=== PATIENT | male | born 1980 | race Caucasian/White ===

== ENCOUNTER 2018-10-24 23:11 | Inpatient (IN) | payer OTHER ==
--- NOTE | 2018-10-24 23:27 | PDOC ---
History of Present Illness <AparicioVeda - Last Filed: 10/25/18 03:06> - General History Source: Patient - History of Present Illness Initial Comments: 10/24/18 23:28 The patient is a 38 year old male with a PMH of Crohn's Disease and Diverticulitis who presents to our ED c/o acute onset of abdominal pain. Pain started @ 0500 this morning and woke patient from sleep. Pain is cramping, diffuse, associated with 20+ episodes of NBNB emesis. Fever w/Tmax 102. Limitedly tolerating PO intake. Does not follow with GI for Crohn's. NKDA Surgical: B/L shoulder Social: Vape nicotine, social alcohol, denies recreational drugs PMD: in [place] As per EMR, patient evaluated in our ED in 2014 for abdominal pain. U/S negative for acute pathology and patient discharged home with supportive care. <Elizabeth Salgado - Last Filed: 10/25/18 03:35> - General Chief Complaint: Vomiting/Diarrhea Stated Complaint: FEVER/NAUSEA/VOMITING Time Seen by Provider: 10/24/18 23:26 Past History <AlessandraVeda - Last Filed: 10/25/18 03:06> - Past Medical History COPD: No GI Disorders: Yes (Chrones dx) - Suicide/Smoking/Psychosocial Hx Smoking History: Never smoked Have you smoked in the past 12 months: Yes Number of Cigarettes Smoked Daily: 2 Hx Alcohol Use: Yes Substance Use Type: Alcohol <DamianElizabeth - Last Filed: 10/25/18 03:35> - Past Medical History Allergies/Adverse Reactions: Allergies Allergy/AdvReac Type Severity Reaction Status Date / Time lactose Allergy Mild DIARRHEA Verified 12/10/14 12:02 No Known Drug Allergies Allergy Verified 12/10/14 12:02 Home Medications: Ambulatory Orders Finasteride [Propecia] 1 mg PO DAILY 12/10/14 Sertraline HCl [Zoloft -] 50 mg PO DAILY 12/10/14 Review of Systems - Review of Systems Constitutional: Yes: Fever. No: Chills HEENTM: No: Recent change in vision Respiratory: No: Cough, Shortness of Breath Cardiac (ROS): No: Chest Pain, Lightheadedness, Palpitations, Syncope ABD/GI: Yes: Blood Streaked Bowels, Diarrhea, Abdominal cramping : No: Burning, Dysuria <Elizabeth Salgado - Last Filed: 10/25/18 03:35> *Physical Exam - Vital Signs Last Vital Signs Temp Pulse Resp BP Pulse Ox 99.8 F H 124 H 20 126/74 97 10/24/18 23:15 10/24/18 23:15 10/24/18 23:15 10/24/18 23:15 10/24/18 23:15 <Veda Aparicio - Last Filed: 10/25/18 03:06> - Vital Signs Last Vital Signs Temp Pulse Resp BP Pulse Ox 99.8 F H 124 H 20 126/74 97 10/24/18 23:15 10/24/18 23:15 10/24/18 23:15 10/24/18 23:15 10/24/18 23:15 - Physical Exam General Appearance: Yes: Nourished, Appropriately Dressed HEENT: positive: Normal Voice, Hearing Grossly Normal Neck: positive: Trachea midline, Supple Respiratory/Chest: positive: Lungs Clear, Normal Breath Sounds Cardiovascular: positive: S1, S2. negative: Murmur Gastrointestinal/Abdominal: positive: Normal Bowel Sounds, Soft. negative: Distended Integumentary: positive: Normal Color, Dry, Warm Neurologic: positive: Fully Oriented, Alert <Elizabeth Salgado - Last Filed: 10/25/18 03:35> ED Treatment Course - LABORATORY CBC & Chemistry Diagram: 10/24/18 21:58 10/24/18 21:58 - ADDITIONAL ORDERS Additional order review: Laboratory Results 10/24/18 10/24/18 10/24/18 23:38 21:58 21:58 Sodium 136 Potassium 3.8 Chloride 101 Carbon Dioxide 27 Anion Gap 7 L BUN 13 Creatinine 1.4 H Creat Clearance w eGFR 57.03 Random Glucose 94 Lactic Acid 1.5 Calcium 9.1 Total Bilirubin 0.7 AST 19 ALT 31 Alkaline Phosphatase 105 Total Protein 8.2 Albumin 4.1 Lipase 215 Stool Occult Blood Negative 10/24/18 21:58 RBC 4.96 MCV 90.3 MCHC 33.0 RDW 13.2 MPV 8.8 Neutrophils % 90.0 H Lymphocytes % 6.1 L D Monocytes % 3.6 L Eosinophils % 0.1 D Basophils % 0.2 - Medications Given in the ED: ED Medications Discontinued Medications Generic Name Dose Route Start Last Admin Trade Name Vazquez PRN Reason Stop Dose Admin Acetaminophen 1,000 mg 10/24/18 23:38 10/25/18 00:38 Ofirmev Injection - IVPB 10/24/18 23:39 1,000 mg ONCE ONE Administration Ibuprofen 600 mg 10/25/18 00:57 10/25/18 01:43 Motrin - PO 10/25/18 00:58 600 mg ONCE ONE Administration Ondansetron HCl 4 mg 10/24/18 23:38 10/25/18 00:39 Zofran Injection IVPUSH 10/24/18 23:39 4 mg ONCE ONE Administration Sodium Chloride 1,000 ml 10/24/18 23:38 10/25/18 00:38 Normal Saline - IV 10/24/18 23:39 1,000 ml ONCE ONE Administration <Veda Aparicio - Last Filed: 10/25/18 03:06> - LABORATORY CBC & Chemistry Diagram: 10/24/18 21:58 10/24/18 21:58 <Elizabeth Salgado - Last Filed: 10/25/18 03:35> Medical Decision Making - Medical Decision Making 10/24/18 23:46 38 year old non-toxic appearing male with acute onset of abdominal cramping, fever, N/V. H/o untreated Crohn's Disease. Tachycardic (HR 124) other VS unremarkable. Consider IBD as well as peritonitis, colitis, diverticulitis, gastritis/gastroenteritis, pancreatitis (less likely), SBO (less likely, patient passing stools), abscess (less likely given clinical presentation). Also consider infectious etiology including Cystitis, Pyelonephritis and PNA. PLAN: 1. CT Abdomen w/IV contrast (PO pending patient tolerating PO intake) 2. Lipase, Lactic Acid, CBC, CMP 3. IV hydration, Tylenol, Zofran Reassess 10/25/18 00:47 Patient reassessed @ bedside Symptomatically improved - will trial PO contrast 10/25/18 00:48 Leukocytosis 15.1 10/25/18 00:51 Repeat HR 96 10/25/18 01:47 Awaiting technical sales consultant 10/25/18 03:00 CT read as colitis. Will start on enteric Abx coverage and admit. Hospitalist microblogged for admission 10/25/18 03:14 Patient reevaluated @ bedside Symptomatically improved Counseled on plan of care Amenable to admission <Elizabeth Salgado - Last Filed: 10/25/18 03:35> *DC/Admit/Observation/Transfer - Discharge Dispostion Decision to Admit order: Yes <Veda Aparicio - Last Filed: 10/25/18 03:06> <Elizabeth Salgado - Last Filed: 10/25/18 03:35> Diagnosis at time of Disposition: Colitis, Fever, Dehydration, Unable to eat - Discharge Dispostion Condition at time of disposition: Guarded
[2018-10-24] MEDS ORDERED: ACETAMINOPHEN 1000 MG/100 ML VIAL (NON FORMULARY) IVPB ONE (23:38)
[2018-10-24] MEDS ORDERED: ONDANSETRON 4 MG/2 ML VIAL IVPUSH ONE (23:38)
[2018-10-24] MEDS ORDERED: SODIUM CHLORIDE 0.9% 500 ML INFUS.BAG IV ONE (23:38)
[2018-10-24] MEDS ORDERED: ONDANSETRON 4 MG/2 ML VIAL ONE (23:46)
[2018-10-24] MEDS ORDERED: ACETAMINOPHEN INJECTION 100 ML IVPB ONE (23:46)
[2018-10-25 00:24] LABS: BASO % 0.2 % (0-2.0); EOS % 0.1 % (0-4.5); HEMATOCRIT 44.8 % (35.4-49); HEMOGLOBIN 14.8 GM/dL (11.7-16.9); LYMPH % 6.1 % (8-40); MCH 29.8 pg (25.7-33.7); MEAN CELL VOLUME 90.3 fl (80-96); MEAN PLT VOLUME 8.8 fl (7.5-11.1); MONO % 3.6 % (3.8-10.2); PLATELET COUNT 270 K/MM3 (134-434); RBC 4.96 M/mm3 (4.00-5.60); RDW 13.2 % (11.9-15.9); WHITE BLOOD COUNT 15.1 K/mm3 (4.0-10.0)
[2018-10-25 00:45] LABS: ALBUMIN 4.1 g/dl (3.4-5.0); ALK PHOS 105 U/L (45-117); ANION GAP 7 MMOL/L (8-16); BILIRUBIN,TOTAL 0.7 mg/dL (0.2-1); BLOOD UREA NITROGEN 13 mg/dL (7-18); CALCIUM 9.1 mg/dL (8.5-10.1); CHLORIDE 101 mmol/L (98-107); CO2 27 mmol/L (21-32); CREATININE 1.4 mg/dL (0.55-1.3); GLUCOSE,RANDOM 94 mg/dL (74-106); LIPASE 215 U/L (73-393); POTASSIUM 3.8 mmol/L (3.5-5.1); SGOT/AST 19 U/L (15-37); SGPT/ALT 31 U/L (13-61); SODIUM 136 mmol/L (136-145); TOT PROT 8.2 g/dl (6.4-8.2)
[2018-10-25] MEDS ORDERED: FOLIC ACID INJECTION - 1 MG, THIAMINE HCL 100 MG, MULTIVIT INJECTION ADULT 10 ML in SOD... IVPB ONE (00:49)
[2018-10-25] MEDS ORDERED: IBUPROFEN 600 MG TABLET (FP) PO ONE ×2 (00:57→01:45)
[2018-10-25] MEDS ORDERED: SODIUM CHLORIDE 0.9% 500 ML INFUS.BAG IV ONE (03:15)
--- NOTE | 2018-10-25 04:30 | PN ---
Teaching Attending Note Name of Resident: Vishal Bose ATTENDING PHYSICIAN STATEMENT I saw and evaluated the patient. I reviewed the resident's note and discussed the case with the resident. I agree with the resident's findings and plan as documented. SUBJECTIVE: Seen and examined; please refer to resident note for further historical details. Briefly, this is a 38 y/o male with a PMH of Crohn's disease diagnosed 2014; dx was made due to chronic diarrhea. Not on medications, not following with GI. Not scoped since original diagnosis. Today at 5AM he had severe abdominal pain copious diarrhea, NBNB vomiting. 102 temperature at home. He thus came to the hospital for further treatment and monitoring. Found to have mild pancolitis on CT with slight KENISHA and leukocytosis. He was started on levofloxacin and metronidazole and medicine was called for admission. We do not have prior biopsy results, etc. 10 sys ROS done and negative aside from HPI PMH, PSH, FH, SH reviewed Medications include zoloft and propecia OBJECTIVE: VS, labs, imaging reviewed NAD, AAOx3, resting comfortably in bed NC AT EOMI PERRLA Lungs CTAB, w/ sym exp Mild diffuse tenderness, no distention CN2-12 wnl, no fnd Normal mood, appropriate affect Prelim CT reviewed ASSESSMENT AND PLAN: Patient presents with what is likely a flare of crohn's disease with n/v/d and pancolitis seen on the CT 1) Likely Crohn's Flare -Hydrating, controlling sx, starting budosenide. Given the pancolitis on the CT it's reasonable to continue abx until final imaging, old records obtained, etc. -Consult GI in the AM; will need close followup, etc. -PRN management -Can check lactoferrin/stool wbc to r/o infectious etiology -Hydrate with LR overnight; clear liquid diet and will advance as tolerated. 2) KENISHA -Given history likely prerenal; empirically hydrate then followup BMP. -Avoid nephrotoxic agents 3) Depression -Verify dose of zoloft and continue Full Code
--- NOTE | 2018-10-25 04:37 | PDOC ---
Documentation entered by Yarelis Amaya SCRIBE, acting as scribe for Veda Aparicio MD. Veda Aparicio MD: This documentation has been prepared by the Jose Luis gaviria Daisy, SCRIBE, under my direction and personally reviewed by me in its entirety. I confirm that the documentation accurately reflects all work, treatment, procedures, and medical decision making performed by me. Attending Attestation - Resident Resident Name: Elizabeth Salgado - ED Attending Attestation I have performed the following: I have examined & evaluated the patient, The case was reviewed & discussed with the resident, I agree w/resident's findings & plan - HPI HPI: 10/25/18 00:50 The patient is a 38 YOM with a PMH of Crohn's and diverticulitis who presents to the ER for evaluation of abdominal pain since 5AM yesterday morning and 20+ episodes of NB, NB vomit. Patient reports a fever TMax 102. Patient has been tolerating PO intake. Does not currently have GI follow up. Allergies: lactose - Physicial Exam PE: 10/25/18 03:02 Agree with resident exam. Pt is febrile and hot to the houch. He has diffuse abd tenderness, but no rebound. Pt has no flank pain. Pt has no pitting edema and his HEENT normal. He has a right submental node. But no redness or exudates of the throat. He does state that he has some odynophagia. - Medical Decision Making 10/25/18 01:41 Strep negative; guaiac negative. Lactic acid negative; however wbc is 15. 10/25/18 01:59 Pt thinks that he was food poisoned. He ate half a chicken parm calzone; however his girlfriend didn't get sick from the other half. Pt also states that he has a work colleague who had a fever and illness last week. 10/25/18 02:53 Patient Name: MARTITA HANKINS THIS IS A PRELIMINARY REPORT FROM [facility] DATE OF SERVICE: 2018-10-25 02:15:04 IMAGES: [id number] EXAM: CT abdomen and pelvis with contrast HISTORY rule out appendicitis COMPARISON: None. FINDINGS: Negative for appendicitis. Normal appendix visualized. However, the lockett of the colon are mildly but diffusely thickened. This is consistent with colitis. No bowel obstruction. No free intraperitoneal air or free fluid. Normal liver. No obvious gallbladder abnormalities. Normal spleen. Normal pancreas. Normal adrenal glands. Normal kidneys and urinary tract or urinary bladder. Osseous structures are intact. Impression: Negative for appendicitis but positive for findings suggesting mild pancolitis 10/25/18 02:54 Pt will be admitted to the hospitalist for a colitis. 10/25/18 03:03 Pt will be given IV abx and he has been hydrated. 10/25/18 04:37 Pt is stable and will be going up to her room
--- NOTE | 2018-10-25 05:36 | HP ---
CHIEF COMPLAINT: abd pain PCP: Lonny Gan HISTORY OF PRESENT ILLNESS: Patient is a 38 y/o M w/ PMHx Crohn's disease (Dx 2015 in w/u for chronic diarrhea, no prior flares, on no treatment and does not follow GI), p/w acute onset abdominal pain since 5am yesterday. Cramping and diffuse, a/w many episodes watery diarrhea and NBNB emesis. Tmax at home 102. On presentation T 99.8, HR 124, vitals otherwise stable. Labs significant for WBC 15.1, Cr 1.4, FOBT negative, LFTs nl, lipase negative. CT a/p showed mild pancolitis. Given metronidazole and levofloxacin, motrin, NS bolus, Ofirmev, Zofran, IV vitamins by ED, significantly more comfortable by time of encounter. Recent Travel: none PAST MEDICAL HISTORY: as per HPI PAST SURGICAL HISTORY: b/l shoulder Sx for dislocations Social History: Smoking: vapes Alcohol: social Drugs: no Family History: Allergies lactose Allergy (Mild, Verified 12/10/14 12:02) DIARRHEA No Known Drug Allergies Allergy (Verified 12/10/14 12:02) HOME MEDICATIONS: Home Medications Medication Instructions Recorded Finasteride [Propecia] 1 mg PO DAILY 12/10/14 Sertraline HCl [Zoloft -] 50 mg PO DAILY 12/10/14 Kabiven IV Emulsion 10/25/18 REVIEW OF SYSTEMS As per HPI PHYSICAL EXAMINATION Vital Signs - 24 hr 10/24/18 10/25/18 23:15 05:06 Temperature 99.8 F H 100.1 F H Pulse Rate 124 H Pulse Rate [ 80 Right] Respiratory 20 18 Rate Blood Pressure 126/74 Blood Pressure 96/62 [Right] O2 Sat by Pulse 97 96 Oximetry (%) GENERAL: A&Ox3, NAD HEENT: NC/AT, PERRLA, EOMI NECK: Normal range of motion, supple without lymphadenopathy, JVD, or masses. LUNGS: CTA b/l HEART: RRR no m/r/g ABDOMEN: soft, diffuse mild tenderness MUSCULOSKELETAL: Normal range of motion at all joints. No bony deformities or tenderness. No CVA tenderness. UPPER EXTREMITIES: 2+ pulses, warm, well-perfused. No cyanosis. No clubbing. No peripheral edema. LOWER EXTREMITIES: 2+ pulses, warm, well-perfused. No calf tenderness. No peripheral edema. NEUROLOGICAL: drier tender, motor, sensory systems w/o focal deficit PSYCHIATRIC: Cooperative. Good eye contact. Appropriate mood and affect. SKIN: Warm, dry, normal turgor, no rashes or lesions noted, normal capillary refill. Laboratory Results - last 24 hr 10/24/18 10/24/18 10/24/18 21:58 21:58 21:58 WBC 15.1 H RBC 4.96 Hgb 14.8 Hct 44.8 MCV 90.3 MCH 29.8 MCHC 33.0 RDW 13.2 Plt Count 270 MPV 8.8 Absolute Neuts (auto) 13.6 H Neutrophils % 90.0 H Lymphocytes % 6.1 L D Monocytes % 3.6 L Eosinophils % 0.1 D Basophils % 0.2 Nucleated RBC % 0 Sodium 136 Potassium 3.8 Chloride 101 Carbon Dioxide 27 Anion Gap 7 L BUN 13 Creatinine 1.4 H Creat Clearance w eGFR 57.03 Random Glucose 94 Lactic Acid 1.5 Calcium 9.1 Total Bilirubin 0.7 AST 19 ALT 31 Alkaline Phosphatase 105 Total Protein 8.2 Albumin 4.1 Lipase 215 Stool Occult Blood Group A Strep Rapid 10/24/18 10/25/18 23:38 01:00 WBC RBC Hgb Hct MCV MCH MCHC RDW Plt Count MPV Absolute Neuts (auto) Neutrophils % Lymphocytes % Monocytes % Eosinophils % Basophils % Nucleated RBC % Sodium Potassium Chloride Carbon Dioxide Anion Gap BUN Creatinine Creat Clearance w eGFR Random Glucose Lactic Acid Calcium Total Bilirubin AST ALT Alkaline Phosphatase Total Protein Albumin Lipase Stool Occult Blood Negative Group A Strep Rapid Negative ASSESSMENT/PLAN: Patient is a 38 y/o M w/ PMHx Crohn's disease (Dx 2014 in w/u for chronic diarrhea, no prior flares, on no treatment and does not follow GI), p/w acute onset abdominal pain a/w diarrhea and NBNB emesis #A -CT showing mild pancolitis -FOBT negative -DDx flare of untreated Crohn's more likely than infectious colitis -mild KENISHA likely 2/2 dehydration -improved w/ empiric treatment #P -consider discontinuation of ABx -steroids for Crohn's flare: budesonide preferred but unavailable, will initiate prednisone 40 daily -needs GI f/u -LR @ 100 -f/u BMP, Mg, Phos -clear liquids, adv as tolerated -mechanical DVT PPx -full code -admit to med/surg Visit type - Emergency Visit Emergency Visit: Yes ED Registration Date: 10/25/18 Care time: The patient presented to the Emergency Department on the above date and was hospitalized for further evaluation of their emergent condition. - New Patient This patient is new to me today: Yes Date on this admission: 10/25/18 - Critical Care Critical Care patient: No
[2018-10-25 06:30] LABS: BASO % 0.2 % (0-2.0); EOS % 0.2 % (0-4.5); HEMATOCRIT 36.9 % (35.4-49); HEMOGLOBIN 12.6 GM/dL (11.7-16.9); LYMPH % 14.8 % (8-40); MCH 30.5 pg (25.7-33.7); MCHC 34.1 g/dl (32.0-35.9); MEAN CELL VOLUME 89.4 fl (80-96); MEAN PLT VOLUME 8.2 fl (7.5-11.1); MONO % 3.8 % (3.8-10.2); PLATELET COUNT 236 K/MM3 (134-434); RBC 4.13 M/mm3 (4.00-5.60); RDW 13.1 % (11.9-15.9); WHITE BLOOD COUNT 11.5 K/mm3 (4.0-10.0)
[2018-10-25] MEDS: LACTATED RINGERS SOLUTION 1,000 ML IV SCH ×2 (07:03→12:53)
[2018-10-25 07:17] LABS: ALBUMIN 3.3 g/dl (3.4-5.0); ALK PHOS 80 U/L (45-117); ANION GAP 10 MMOL/L (8-16); BILIRUBIN,TOTAL 0.6 mg/dL (0.2-1); BLOOD UREA NITROGEN 10 mg/dL (7-18); CALCIUM 7.4 mg/dL (8.5-10.1); CHLORIDE 108 mmol/L (98-107); CO2 23 mmol/L (21-32); CREATININE 1.2 mg/dL (0.55-1.3); GLUCOSE,RANDOM 103 mg/dL (74-106); MAGNESIUM 1.7 mg/dL (1.8-2.4); PHOSPHOROUS 3.6 mg/dL (2.5-4.9); POTASSIUM 3.7 mmol/L (3.5-5.1); SGOT/AST 20 U/L (15-37); SGPT/ALT 28 U/L (13-61); SODIUM 140 mmol/L (136-145); TOT PROT 6.2 g/dl (6.4-8.2)
--- NOTE | 2018-10-25 09:59 | EKG ---
Test Reason : Blood Pressure : / mmHG Vent. Rate : 080 BPM Atrial Rate : 080 BPM P-R Int : 148 ms QRS Dur : 076 ms QT Int : 380 ms P-R-T Axes : 063 065 053 degrees QTc Int : 438 ms NORMAL SINUS RHYTHM NORMAL ECG NO PREVIOUS ECGS AVAILABLE Confirmed by JEANETTE JOHNS MD ([id number]) on 10/25/2018 9:59:07 AM Referred By: Confirmed By:JEANETTE JOHNS MD
[2018-10-25] MEDS ORDERED: predniSONE 20 MG TABLET (UD) PO SCH (10:00)
--- NOTE | 2018-10-25 14:45 | PN ---
Physical Exam: SUBJECTIVE: Patient seen and examined. Pt. states that he feels lightheaded and tired. Pt. endorses being [place]kenazi Rastafarian in heritage, as well as having a sister with UC, cousin with Chrohn's and distant family with Chrohn's. Pt. endorses pain in lower back with out groin anesthesia or paresthesias. Pt. endorses that on initial colonoscopy 4 years ago (the last one that he has had) he was biopsied and diagnosed from initial presentation in the ileum. OBJECTIVE: Vital Signs Period Temp Pulse Resp BP Sys/Werner Pulse Ox Last 24 Hr 98.3 F-100.1 F 72-124 18-20 96-126/60-74 96-97 GENERAL: The patient is awake, alert, and fully oriented, in no acute distress. HEAD: Normal with no signs of trauma. EYES: sclera anicteric, conjunctiva clear. No ptosis. ENT: Ears normal, nares patent, oropharynx clear without exudates, moist mucous membranes. NECK: Trachea midline, full range of motion, supple. LUNGS: Breath sounds equal, clear to auscultation bilaterally, no wheezes, no crackles, no accessory muscle use. HEART: Regular rate and rhythm, S1, S2 without murmur, rub or gallop. ABDOMEN: Soft, RLQ and LLQ mild tenderness, nondistended, normoactive bowel sounds EXTREMITIES: 2+ radial pulses, warm, well-perfused, no calf tenderness, no edema. NEUROLOGICAL: Normal speech, gait not observed. PSYCH: Normal mood, normal affect. SKIN: Warm, dry, normal turgor, no rashes or lesions noted Laboratory Results - last 24 hr 10/24/18 10/24/18 10/24/18 21:58 21:58 21:58 WBC 15.1 H RBC 4.96 Hgb 14.8 Hct 44.8 MCV 90.3 MCH 29.8 MCHC 33.0 RDW 13.2 Plt Count 270 MPV 8.8 Absolute Neuts (auto) 13.6 H Neutrophils % 90.0 H Lymphocytes % 6.1 L D Monocytes % 3.6 L Eosinophils % 0.1 D Basophils % 0.2 Nucleated RBC % 0 Sodium 136 Potassium 3.8 Chloride 101 Carbon Dioxide 27 Anion Gap 7 L BUN 13 Creatinine 1.4 H Creat Clearance w eGFR 57.03 Random Glucose 94 Lactic Acid 1.5 Calcium 9.1 Phosphorus Magnesium Total Bilirubin 0.7 AST 19 ALT 31 Alkaline Phosphatase 105 Total Protein 8.2 Albumin 4.1 Lipase 215 Stool Occult Blood Group A Strep Rapid 10/24/18 10/25/18 10/25/18 23:38 01:00 05:30 WBC 11.5 H RBC 4.13 Hgb 12.6 Hct 36.9 D MCV 89.4 MCH 30.5 MCHC 34.1 RDW 13.1 Plt Count 236 MPV 8.2 Absolute Neuts (auto) 9.3 H Neutrophils % 81.0 Lymphocytes % 14.8 D Monocytes % 3.8 Eosinophils % 0.2 D Basophils % 0.2 Nucleated RBC % 0 Sodium Potassium Chloride Carbon Dioxide Anion Gap BUN Creatinine Creat Clearance w eGFR Random Glucose Lactic Acid Calcium Phosphorus Magnesium Total Bilirubin AST ALT Alkaline Phosphatase Total Protein Albumin Lipase Stool Occult Blood Negative Group A Strep Rapid Negative 10/25/18 05:30 WBC RBC Hgb Hct MCV MCH MCHC RDW Plt Count MPV Absolute Neuts (auto) Neutrophils % Lymphocytes % Monocytes % Eosinophils % Basophils % Nucleated RBC % Sodium 140 Potassium 3.7 Chloride 108 H Carbon Dioxide 23 Anion Gap 10 BUN 10 Creatinine 1.2 Creat Clearance w eGFR 68.13 Random Glucose 103 Lactic Acid Calcium 7.4 L Phosphorus 3.6 Magnesium 1.7 L Total Bilirubin 0.6 AST 20 ALT 28 Alkaline Phosphatase 80 Total Protein 6.2 L Albumin 3.3 L Lipase Stool Occult Blood Group A Strep Rapid Active Medications Home Medications Medication Instructions Recorded Finasteride [Propecia] 1 mg PO DAILY 12/10/14 Sertraline HCl [Zoloft -] 50 mg PO DAILY 12/10/14 Current Medications Acetaminophen (Tylenol -) 650 mg PO Q4H PRN PRN Reason: FEVER Heparin Sodium (Porcine) (Heparin -) 5,000 unit SQ TID [facility] Lactated Ringer's (Lactated Ringers Solution) 1,000 mls @ 100 mls/hr IV ASDIR [facility] Last Admin: 10/25/18 07:03 Dose: Not Given Levofloxacin (Levaquin 750 Mg Premixed Ivpb -) 750 mg in 150 mls @ 100 mls/hr IVPB DAILY ONE; Protocol Stop: 10/26/18 07:29 Metronidazole (Flagyl -) 500 mg PO TID [facility] Non-Formulary Medication (Finasteride [Propecia]) 1 mg PO DAILY [facility] Prednisone (Deltasone -) 40 mg PO DAILY [facility] Last Admin: 10/25/18 10:44 Dose: 40 mg Sertraline HCl (Zoloft -) 50 mg PO DAILY [facility] ASSESSMENT/PLAN: Patient presents with what is likely a flare of crohn's disease with n/v/d and pancolitis seen on the CT #Crohn's Flare CT Scan: shows Capellan-colitis, 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 Aragon) appreciated Pt. states that he tried Mesalamine for a few weeks after initial diagnosis but no longer takes it. 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 Morphine 2q4H PRN for pain 6-10 Tylenol 650mg Q4H for pain 1-5 or fever #Depression c/w Zoloft #FEN LR @ 100ml/hr monitor electrolytes, repleted magnesium Clear Liquids #DVT Ppx. Heparin SQ 5k Full Code Visit type - Emergency Visit Emergency Visit: Yes ED Registration Date: 10/25/18 Care time: The patient presented to the Emergency Department on the above date and was hospitalized for further evaluation of their emergent condition. - New Patient This patient is new to me today: Yes Date on this admission: 10/25/18 - Critical Care Critical Care patient: No - Discharge Referral Referred to [facility] Med [facility] No
--- NOTE | 2018-10-25 15:35 | PN ---
Teaching Attending Note Name of Resident: Anam Rosa ATTENDING PHYSICIAN STATEMENT I saw and evaluated the patient. I reviewed the resident's note and discussed the case with the resident. I agree with the resident's findings and plan as documented. SUBJECTIVE: Still complains of diarrhea with generalized abdominal discomfort. No fever/chills. No further nausea/vomiting. OBJECTIVE: Afebrile, Hemodynamically Stable. Last Vital Signs Temp Pulse Resp BP Pulse Ox 98.7 F 72 20 105/67 96 10/25/18 14:39 10/25/18 14:39 10/25/18 14:39 10/25/18 14:39 10/25/18 05:06 HEENT - Atraumatic, Normocephalic Heart - S1, S2, RRR Lungs - clear to auscultation Abdomen - Soft, mild inguinal tenderness bilaterally. Bowel Sounds normal. Extremities - no edema, no calf tenderness. Laboratory Results - last 24 hr 10/24/18 10/24/18 10/24/18 21:58 21:58 21:58 WBC 15.1 H RBC 4.96 Hgb 14.8 Hct 44.8 MCV 90.3 MCH 29.8 MCHC 33.0 RDW 13.2 Plt Count 270 MPV 8.8 Absolute Neuts (auto) 13.6 H Neutrophils % 90.0 H Lymphocytes % 6.1 L D Monocytes % 3.6 L Eosinophils % 0.1 D Basophils % 0.2 Nucleated RBC % 0 Sodium 136 Potassium 3.8 Chloride 101 Carbon Dioxide 27 Anion Gap 7 L BUN 13 Creatinine 1.4 H Creat Clearance w eGFR 57.03 Random Glucose 94 Lactic Acid 1.5 Calcium 9.1 Phosphorus Magnesium Total Bilirubin 0.7 AST 19 ALT 31 Alkaline Phosphatase 105 Total Protein 8.2 Albumin 4.1 Lipase 215 Stool Occult Blood Group A Strep Rapid 10/24/18 10/25/18 10/25/18 23:38 01:00 05:30 WBC 11.5 H RBC 4.13 Hgb 12.6 Hct 36.9 D MCV 89.4 MCH 30.5 MCHC 34.1 RDW 13.1 Plt Count 236 MPV 8.2 Absolute Neuts (auto) 9.3 H Neutrophils % 81.0 Lymphocytes % 14.8 D Monocytes % 3.8 Eosinophils % 0.2 D Basophils % 0.2 Nucleated RBC % 0 Sodium Potassium Chloride Carbon Dioxide Anion Gap BUN Creatinine Creat Clearance w eGFR Random Glucose Lactic Acid Calcium Phosphorus Magnesium Total Bilirubin AST ALT Alkaline Phosphatase Total Protein Albumin Lipase Stool Occult Blood Negative Group A Strep Rapid Negative 10/25/18 05:30 WBC RBC Hgb Hct MCV MCH MCHC RDW Plt Count MPV Absolute Neuts (auto) Neutrophils % Lymphocytes % Monocytes % Eosinophils % Basophils % Nucleated RBC % Sodium 140 Potassium 3.7 Chloride 108 H Carbon Dioxide 23 Anion Gap 10 BUN 10 Creatinine 1.2 Creat Clearance w eGFR 68.13 Random Glucose 103 Lactic Acid Calcium 7.4 L Phosphorus 3.6 Magnesium 1.7 L Total Bilirubin 0.6 AST 20 ALT 28 Alkaline Phosphatase 80 Total Protein 6.2 L Albumin 3.3 L Lipase Stool Occult Blood Group A Strep Rapid Current Medications Generic Name Dose Route Start Last Admin Trade Name Freq PRN Reason Stop Dose Admin Acetaminophen 650 mg 10/25/18 13:28 Tylenol - PO Q4H PRN FEVER Lactated Ringer's 1,000 mls @ 100 mls/hr 10/25/18 04:45 10/25/18 07:03 Lactated Ringers Solution IV Not Given ASDIR CHRIS Prednisone 40 mg 10/25/18 10:00 10/25/18 10:44 Deltasone - PO 40 mg DAILY [facility] Administration Home Medications Medication Instructions Recorded Finasteride [Propecia] 1 mg PO DAILY 12/10/14 Sertraline HCl [Zoloft -] 50 mg PO DAILY 12/10/14 Kabiven IV Emulsion 10/25/18 ASSESSMENT AND PLAN: 38 year old male with history of Crohn's Disease, Dx 2015, does not follow with out-patient GI, presents with bloody diarrhea, nausea and NBNB vomiting. No fever/chills. CT A/P - Pancolitis. 1. Acute Flare IBD/Chrones, resolving. Started on Prednisone pending GI evaluation Afebrile, Hemodynamiclly Stable. leukocytosis resolving Afebrle, Hemodynamically Stable. Stool for Cdiff and Cx. 2. KENISHA secondary to dehydration due to diarrhea/vomtiing - resolving with IV hydration 3. Hypomagnesemia - repleted. 4. Depression - resume Zoloft. DVT Px - SCDs. Heparin held due to reported bloody diarrhea.
--- NOTE | 2018-10-25 15:50 | CON.GI ---
Consult Consult Specialty:: GI Referred by:: Medicine Reason for Consultation:: Crohn's flare - History of Present Illness Chief Complaint: diarrhea History of Present Illness: 38M with h/o Crohn's disease diagnosed in 2014 (ileum per pt, was trialed on pentasa but pt reported no beneficial effects so stopped, not on any therapy currently) presenting for evaluation of multiple episodes of diarrhea and fevers since yesterday. Pt and fiancee ate typical foods, fiance not sick. Patient reported liquid stool every 20 minutes yesterday with fever to 102 and cramping lower abdominal pain so came in to ED. Reports 5-6 episodes of blood with stool in toilet bowl after contrast, but now it is pasty yellow. Here, WBC elevation noted, had CT showing pancolitis. GI consulted for further evaluation. Stool for C. diff sent and negative. No other stool studies sent. Patient given antibiotics and one dose of prednisone PO. No eye pain. Diffuse joint pain and low back pain. No rashes. ++FHx IBD with UC in sister and cousin. - History Source History Provided By: Patient Limitations to Obtaining History: No Limitations - Past Medical History Psych: Yes: Anxiety - Past Surgical History Additional Surgical History: shoulder surgery x2 - Alcohol/Substance Use Hx Alcohol Use: Yes - Smoking History Smoking history: Never smoked Have you smoked in the past 12 months: Yes Aproximately how many cigarettes per day: 2 - Social History Usual Living Arrangement: With Significant Other Home Medications - Allergies Allergies/Adverse Reactions: Allergies Allergy/AdvReac Type Severity Reaction Status Date / Time lactose Allergy Mild DIARRHEA Verified 12/10/14 12:02 No Known Drug Allergies Allergy Verified 12/10/14 12:02 - Home Medications Home Medications: Ambulatory Orders Finasteride [Propecia] 1 mg PO DAILY 12/10/14 Sertraline HCl [Zoloft -] 50 mg PO DAILY 12/10/14 Kabiven IV Emulsion 10/25/18 Family Disease History - Family Disease History Family Disease History: Other: Sister (UC) Other Family History: Cousin with UC Review of Systems - Review of Systems Constitutional: reports: Chills, Fever Eyes: denies: Blurred Vision, Double Vision, Eye Pain HENT: reports: No Symptoms Neck: reports: No Symptoms Cardiovascular: reports: No Symptoms Respiratory: reports: No Symptoms Gastrointestinal: reports: Abdominal Pain, Diarrhea, Rectal Bleeding Musculoskeletal: reports: Back Pain, Joint Pain Integumentary: reports: No Symptoms Neurological: reports: No Symptoms Endocrine: reports: No Symptoms Hematology/Lymphatic: reports: No Symptoms Physical Exam-GI Vital Signs: Vital Signs Temperature 98.7 F 10/25/18 14:39 Pulse Rate 72 10/25/18 14:39 Respiratory Rate 20 10/25/18 14:39 Blood Pressure 105/67 10/25/18 14:39 O2 Sat by Pulse Oximetry (%) 96 10/25/18 05:06 Constitutional: Yes: Well Nourished, No Distress Eyes: Yes: Conjunctiva Clear HENT: Yes: WNL Neck: Yes: WNL Cardiovascular: Yes: WNL Respiratory: Yes: WNL ...Palpate: Yes: Soft, Tenderness, Other (ttp in b/l lower quadrants without guarding) ...Rectal Exam: Yes: Deferred Musculoskeletal: Yes: Back Pain, Other (bilateral SI joint ttp) Extremities: Yes: WNL Integumentary: No: Rash Neurological: Yes: Alert, Oriented Psychiatric: Yes: Alert, Oriented Labs: CBC, BMP 10/25/18 05:30 10/25/18 05:30 C. diff negative Imaging - Results Cat Scan: Report Reviewed Assessment/Plan Likely Crohn's flare. Patient has not had care for this in a few years. Would confirm no infection before trialing steroids. - check stool cx - if stool culture negative, would plan for colonoscopy to further assess - tentatively on Thursday pending stool cx - check ESR/CRP, fecal calprotectin - would xray SI joints - would hold off on further steroids pending the above - unlikely to be infectious colitis, can keep antibiotics on for now but d/c if/ when stool culture negative
[2018-10-25] MEDS ORDERED: MAGNESIUM SULF 50% (8.12 MEQ/2 ML-1 GM VIAL) IVPB ONE (16:43)
[2018-10-25] MEDS ORDERED: morphine SULFATE 4 MG/ML VIAL IVPUSH PRN (17:05)
[2018-10-25] MEDS: ACETAMINOPHEN 325 MG TABLET (FP) PO PRN (17:52)
[2018-10-25] MEDS: metroNIDAZOLE 250 MG TABLET PO SCH (22:05)
[2018-10-25] MEDS: HEPARIN NA (PORCINE) 5,000 UNITS/ML 1ML VIAL SQ SCH (22:06)
[2018-10-26] MEDS: metroNIDAZOLE 250 MG TABLET PO SCH ×3 (06:01→21:38)
[2018-10-26] MEDS: HEPARIN NA (PORCINE) 5,000 UNITS/ML 1ML VIAL SQ SCH ×3 (06:03→21:39)
[2018-10-26 07:30] LABS: BASO % 0.2 % (0-2.0); EOS % 0.5 % (0-4.5); HEMATOCRIT 36.7 % (35.4-49); HEMOGLOBIN 12.4 GM/dL (11.7-16.9); MCH 30.6 pg (25.7-33.7); MCHC 33.8 g/dl (32.0-35.9); MEAN CELL VOLUME 90.5 fl (80-96); MEAN PLT VOLUME 8.6 fl (7.5-11.1); MONO % 6.6 % (3.8-10.2); NEUT % 63.7 % (42.8-82.8); PLATELET COUNT 231 K/MM3 (134-434); RBC 4.05 M/mm3 (4.00-5.60); WHITE BLOOD COUNT 7.1 K/mm3 (4.0-10.0)
[2018-10-26 08:15] LABS: ANION GAP 5 MMOL/L (8-16); BLOOD UREA NITROGEN 5 mg/dL (7-18); CALCIUM 8.8 mg/dL (8.5-10.1); CHLORIDE 106 mmol/L (98-107); CO2 28 mmol/L (21-32); GLUCOSE,RANDOM 112 mg/dL (74-106); MAGNESIUM 2.5 mg/dL (1.8-2.4); PHOSPHOROUS 2.6 mg/dL (2.5-4.9); POTASSIUM 3.8 mmol/L (3.5-5.1); SODIUM 139 mmol/L (136-145)
[2018-10-26] MEDS ORDERED: FINASTERIDE 1 MG PO SCH (10:00)
[2018-10-26] MEDS: predniSONE 20 MG TABLET (UD) PO SCH (10:42)
[2018-10-26] MEDS: SERTRALINE HCL 50 MG TABLET (FP) PO SCH (10:42)
--- NOTE | 2018-10-26 14:58 | PN ---
Teaching Attending Note Name of Resident: Anam Rosa ATTENDING PHYSICIAN STATEMENT I saw and evaluated the patient. I reviewed the resident's note and discussed the case with the resident. I agree with the resident's findings and plan as documented. SUBJECTIVE: Still complains of ongoing diarrhea with generalized abdominal discomfort. No fever/chills. No further nausea/vomiting. No melena/hematochezia. OBJECTIVE: Afebrile, Hemodynamically Stable. Last Vital Signs Temp Pulse Resp BP Pulse Ox 98.7 F 80 20 131/80 96 10/26/18 14:13 10/26/18 14:13 10/26/18 14:13 10/26/18 14:13 10/25/18 21:00 Heart - S1, S2, RRR Lungs - clear to auscultation Abdomen - Soft, mild bilateral LQ tenderness. Bowel Sounds normal. Extremities - no edema, no calf tenderness. Laboratory Results - last 24 hr 10/25/18 10/25/18 10/26/18 17:30 17:30 06:15 WBC 7.1 RBC 4.05 Hgb 12.4 Hct 36.7 MCV 90.5 MCH 30.6 MCHC 33.8 RDW 13.0 Plt Count 231 MPV 8.6 Absolute Neuts (auto) 4.5 Neutrophils % 63.7 D Lymphocytes % 29.0 D Monocytes % 6.6 Eosinophils % 0.5 D Basophils % 0.2 Nucleated RBC % 0 ESR 23 H Sodium Potassium Chloride Carbon Dioxide Anion Gap BUN Creatinine Creat Clearance w eGFR Random Glucose Calcium Phosphorus Magnesium C-Reactive Protein 13.9 H 10/26/18 06:15 WBC RBC Hgb Hct MCV MCH MCHC RDW Plt Count MPV Absolute Neuts (auto) Neutrophils % Lymphocytes % Monocytes % Eosinophils % Basophils % Nucleated RBC % ESR Sodium 139 Potassium 3.8 Chloride 106 Carbon Dioxide 28 Anion Gap 5 L BUN 5 L Creatinine 1.0 Creat Clearance w eGFR 84.08 Random Glucose 112 H Calcium 8.8 Phosphorus 2.6 Magnesium 2.5 H C-Reactive Protein Current Medications Generic Name Dose Route Start Last Admin Trade Name Freq PRN Reason Stop Dose Admin Acetaminophen 650 mg 10/25/18 13:28 10/25/18 17:52 Tylenol - PO 650 mg Q4H PRN Administration FEVER Heparin Sodium (Porcine) 5,000 unit 10/25/18 22:00 10/26/18 06:03 Heparin - SQ 5,000 unit TID CHRIS Administration Lactated Ringer's 1,000 mls @ 100 mls/hr 10/25/18 04:45 10/25/18 12:53 Lactated Ringers Solution IV 100 mls/hr ASDIR CHRIS Administration Levofloxacin 750 mg in 150 mls @ 100 mls/hr 10/26/18 10:00 10/26/18 10:42 Levaquin 750 Mg Premixed Ivpb - IVPB 100 mls/hr DAILY CHRIS Administration Protocol Metronidazole 500 mg 10/25/18 22:00 10/26/18 06:01 Flagyl - PO 500 mg TID CHRIS Administration Morphine Sulfate 2 mg 10/25/18 17:05 Morphine Sulfate IVPUSH Q4H PRN PAIN LEVEL 6-10 Non-Formulary Medication 1 mg 10/26/18 10:00 Finasteride [Propecia] PO DAILY CHRIS Prednisone 60 mg 10/26/18 10:00 10/26/18 10:42 Deltasone - PO 60 mg DAILY CHRIS Administration Sertraline HCl 50 mg 10/26/18 10:00 10/26/18 10:42 Zoloft - PO 50 mg DAILY CHRIS Administration ASSESSMENT AND PLAN: 38 year old male with history of Crohn's Disease, Dx 2015, does not follow with out-patient GI, presents with bloody diarrhea, nausea and NBNB vomiting. No fever/chills. CT A/P - Pancolitis. 1. Acute Flare IBD/Crohn's Ongoing profuse diarrhea, non-bloody Afebrile, Hemodynamiclly Stable. Leukocytosis resolving Afebrle, Hemodynamically Stable. Stool Cdiff negative and Stool Gram stain neg. Stool Cx pending. Continue Prednisone, Levofloxacin, Flagyl (continue Abx as per GI recs) Further recommendations as per GI 2. KENISHA secondary to dehydration due to diarrhea/vomiting - resolved with IV hydration 3. Hypomagnesemia - repleted. 4. Depression - resume Zoloft. DVT Px - SCDs. Heparin held due to reported bloody diarrhea on admission.
[2018-10-26] MEDS: LACTATED RINGERS SOLUTION 1,000 ML IV SCH (15:16)
--- NOTE | 2018-10-26 16:11 | PN ---
Physical Exam: SUBJECTIVE: Patient seen and examined OBJECTIVE: Vital Signs Period Temp Pulse Resp BP Sys/Werner Pulse Ox Last 24 Hr 98 F-98.9 F 68-91 18-20 111-131/63-80 96 GENERAL: The patient is awake, alert, and fully oriented, in no acute distress. HEAD: Normal with no signs of trauma. EYES: PERRL, extraocular movements intact, sclera anicteric, conjunctiva clear. No ptosis. ENT: Ears normal, nares patent, oropharynx clear without exudates, moist mucous membranes. NECK: Trachea midline, full range of motion, supple. LUNGS: Breath sounds equal, clear to auscultation bilaterally, no wheezes, no crackles, no accessory muscle use. HEART: Regular rate and rhythm, S1, S2 without murmur, rub or gallop. ABDOMEN: Soft, nontender, nondistended, normoactive bowel sounds, no guarding, no rebound, no hepatosplenomegaly, no masses. EXTREMITIES: 2+ pulses, warm, well-perfused, no edema. NEUROLOGICAL: Cranial nerves II through XII grossly intact. Normal speech, gait not observed. PSYCH: Normal mood, normal affect. SKIN: Warm, dry, normal turgor, no rashes or lesions noted Laboratory Results - last 24 hr 10/25/18 10/25/18 10/26/18 17:30 17:30 06:15 WBC 7.1 RBC 4.05 Hgb 12.4 Hct 36.7 MCV 90.5 MCH 30.6 MCHC 33.8 RDW 13.0 Plt Count 231 MPV 8.6 Absolute Neuts (auto) 4.5 Neutrophils % 63.7 D Lymphocytes % 29.0 D Monocytes % 6.6 Eosinophils % 0.5 D Basophils % 0.2 Nucleated RBC % 0 ESR 23 H Sodium Potassium Chloride Carbon Dioxide Anion Gap BUN Creatinine Creat Clearance w eGFR Random Glucose Calcium Phosphorus Magnesium C-Reactive Protein 13.9 H 10/26/18 06:15 WBC RBC Hgb Hct MCV MCH MCHC RDW Plt Count MPV Absolute Neuts (auto) Neutrophils % Lymphocytes % Monocytes % Eosinophils % Basophils % Nucleated RBC % ESR Sodium 139 Potassium 3.8 Chloride 106 Carbon Dioxide 28 Anion Gap 5 L BUN 5 L Creatinine 1.0 Creat Clearance w eGFR 84.08 Random Glucose 112 H Calcium 8.8 Phosphorus 2.6 Magnesium 2.5 H C-Reactive Protein Active Medications Generic Name Dose Route Start Last Admin Trade Name Saulq PRN Reason Stop Dose Admin Acetaminophen 650 mg 10/25/18 13:28 10/25/18 17:52 Tylenol - PO 650 mg Q4H PRN Administration FEVER Lactated Ringer's 1,000 mls @ 100 mls/hr 10/25/18 04:45 10/26/18 15:16 Lactated Ringers Solution IV 100 mls/hr ASDIR CHRIS Administration Levofloxacin 750 mg in 150 mls @ 100 mls/hr 10/26/18 10:00 10/26/18 10:42 Levaquin 750 Mg Premixed Ivpb - IVPB 100 mls/hr DAILY CHRIS Administration Protocol Metronidazole 500 mg 10/25/18 22:00 10/26/18 15:16 Flagyl - PO 500 mg TID CHRIS Administration Morphine Sulfate 2 mg 10/25/18 17:05 Morphine Sulfate IVPUSH Q4H PRN PAIN LEVEL 6-10 Non-Formulary Medication 1 mg 10/26/18 10:00 Finasteride [Propecia] PO DAILY CHRIS Prednisone 60 mg 10/26/18 10:00 10/26/18 10:42 Deltasone - PO 60 mg DAILY CHRIS Administration Sertraline HCl 50 mg 10/26/18 10:00 10/26/18 10:42 Zoloft - PO 50 mg DAILY CHRIS Administration ASSESSMENT/PLAN:
--- NOTE | 2018-10-26 16:15 | PN ---
Physical Exam: SUBJECTIVE: Patient seen and examined. Pt. endorses 10 clear, yellow and non- bloody BMs. Pt. states that he left like he had a subjective fever overnight. Per nurse temp of 99.5 was recorded and he was given Tylenol. Pt. denies chills. OBJECTIVE: Vital Signs Period Temp Pulse Resp BP Sys/Werner Pulse Ox Last 24 Hr 98 F-98.9 F 68-91 18-20 111-131/63-80 96 GENERAL: The patient is awake, alert, and fully oriented, in no acute distress. HEAD: Normal with no signs of trauma. EYES: sclera anicteric, conjunctiva clear. No ptosis. ENT: Ears normal, nares patent, oropharynx clear without exudates, moist mucous membranes. NECK: Trachea midline, full range of motion, supple. LUNGS: Breath sounds equal, clear to auscultation bilaterally, no wheezes, no crackles, no accessory muscle use. HEART: Regular rate and rhythm, S1, S2 without murmur, rub or gallop. ABDOMEN: Soft, RLQ and LLQ mild tenderness, nondistended, normoactive bowel sounds EXTREMITIES: 2+ radial pulses, warm, well-perfused, no calf tenderness, no edema. NEUROLOGICAL: Normal speech, gait not observed. PSYCH: Normal mood, normal affect. SKIN: Warm, dry, normal turgor, no rashes or lesions noted Laboratory Results - last 24 hr 10/25/18 10/25/18 10/26/18 17:30 17:30 06:15 WBC 7.1 RBC 4.05 Hgb 12.4 Hct 36.7 MCV 90.5 MCH 30.6 MCHC 33.8 RDW 13.0 Plt Count 231 MPV 8.6 Absolute Neuts (auto) 4.5 Neutrophils % 63.7 D Lymphocytes % 29.0 D Monocytes % 6.6 Eosinophils % 0.5 D Basophils % 0.2 Nucleated RBC % 0 ESR 23 H Sodium Potassium Chloride Carbon Dioxide Anion Gap BUN Creatinine Creat Clearance w eGFR Random Glucose Calcium Phosphorus Magnesium C-Reactive Protein 13.9 H 10/26/18 06:15 WBC RBC Hgb Hct MCV MCH MCHC RDW Plt Count MPV Absolute Neuts (auto) Neutrophils % Lymphocytes % Monocytes % Eosinophils % Basophils % Nucleated RBC % ESR Sodium 139 Potassium 3.8 Chloride 106 Carbon Dioxide 28 Anion Gap 5 L BUN 5 L Creatinine 1.0 Creat Clearance w eGFR 84.08 Random Glucose 112 H Calcium 8.8 Phosphorus 2.6 Magnesium 2.5 H C-Reactive Protein Active Medications Home Medications Medication Instructions Recorded Finasteride [Propecia] 1 mg PO DAILY 12/10/14 Sertraline HCl [Zoloft -] 50 mg PO DAILY 12/10/14 Current Medications Acetaminophen (Tylenol -) 650 mg PO Q4H PRN PRN Reason: FEVER Last Admin: 10/25/18 17:52 Dose: 650 mg Lactated Ringer's (Lactated Ringers Solution) 1,000 mls @ 100 mls/hr IV ASDIR CHRIS Last Admin: 10/26/18 15:16 Dose: 100 mls/hr Levofloxacin (Levaquin 750 Mg Premixed Ivpb -) 750 mg in 150 mls @ 100 mls/hr IVPB DAILY [facility]; Protocol Last Admin: 10/26/18 10:42 Dose: 100 mls/hr Metronidazole (Flagyl -) 500 mg PO TID [facility] Last Admin: 10/26/18 15:16 Dose: 500 mg Morphine Sulfate (Morphine Sulfate) 2 mg IVPUSH Q4H PRN PRN Reason: PAIN LEVEL 6-10 Non-Formulary Medication (Finasteride [Propecia]) 1 mg PO DAILY [facility] Prednisone (Deltasone -) 60 mg PO DAILY [facility] Last Admin: 10/26/18 10:42 Dose: 60 mg Sertraline HCl (Zoloft -) 50 mg PO DAILY [facility] Last Admin: 10/26/18 10:42 Dose: 50 mg ASSESSMENT/PLAN: Patient presents with what is likely a flare of crohn's disease with n/v/d and pancolitis seen on the CT #Crohn's Flare CT Scan: shows Capellan-colitis, 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 Aragon) appreciated Pt. states that he tried Mesalamine for a few weeks after initial diagnosis but no longer takes it. 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 Morphine 2q4H PRN for pain 6-10 Tylenol 650mg Q4H for pain 1-5 or fever Prednisone increased to 60mg PO Daily #Depression c/w Zoloft #FEN LR @ 100ml/hr monitor electrolytes, repleted magnesium Clear Liquids, NPO after midnight #DVT Ppx. Heparin SQ 5k Full Code Visit type - Emergency Visit Emergency Visit: Yes ED Registration Date: 10/25/18 Care time: The patient presented to the Emergency Department on the above date and was hospitalized for further evaluation of their emergent condition. - New Patient This patient is new to me today: No - Critical Care Critical Care patient: No - Discharge Referral Referred to [facility] Med P.C.: No
[2018-10-26] MEDS ORDERED: BISACODYL 5 MG TABLET.DR (FP) PO STA (18:11)
[2018-10-26] MEDS ORDERED: POLYETHYLENE GLYCOL 3350 255 GM BTL PO STA (18:12)
--- NOTE | 2018-10-26 18:13 | PN.GI ---
GI Progress Note Subjective: Continued loose BMs: States having about 12 watery BM's today No abdominal pain. states feeling constantly bloated + fecal leukocytes - Objective Vital Signs: Vital Signs Temperature 98.2 F 10/26/18 17:45 Pulse Rate 71 10/26/18 17:45 Respiratory Rate 20 10/26/18 17:45 Blood Pressure 117/66 10/26/18 17:45 O2 Sat by Pulse Oximetry (%) 96 10/25/18 21:00 Constitutional: Calm Eyes: No: Sclera Icterus Cardiovascular: Yes: Regular Rate and Rhythm Respiratory: Yes: CTA Bilaterally Gastrointestinal Inspection: No: Distention ...Auscultate: Yes: Normoactive Bowel Sounds ...Palpate: No: Hepatomegaly, Splenomegaly ...Percussion: No: Tympanitic Edema: No (No LE edema) Neurological: Yes: Alert Labs: CBC, BMP 10/26/18 06:15 10/26/18 06:15 Problem List - Problems (1) Diarrhea Assessment/Plan: Fevers and leukocytosis improved however continued diarrhea Given history, for colonoscopy tomorrow follow-up stool studies AM labs Hold SC heparin in AM Code(s): R19.7 - DIARRHEA, UNSPECIFIED
[2018-10-26] MEDS: ACETAMINOPHEN 325 MG TABLET (FP) PO PRN (21:38)
[2018-10-27] MEDS ORDERED: diphenhydrAMINE HCL 25 MG CAPSULE (FP) PO ONE ×2 (03:55→21:50)
[2018-10-27] MEDS: metroNIDAZOLE 250 MG TABLET PO SCH ×3 (06:22→21:58)
[2018-10-27 07:20] LABS: BASO % 0.2 % (0-2.0); EOS % 0.2 % (0-4.5); HEMATOCRIT 37.9 % (35.4-49); HEMOGLOBIN 12.9 GM/dL (11.7-16.9); LYMPH % 30.7 % (8-40); MCH 30.2 pg (25.7-33.7); MCHC 33.9 g/dl (32.0-35.9); MEAN CELL VOLUME 89.2 fl (80-96); MEAN PLT VOLUME 8.4 fl (7.5-11.1); MONO % 7.5 % (3.8-10.2); NEUT % 61.4 % (42.8-82.8); PLATELET COUNT 272 K/MM3 (134-434); RBC 4.25 M/mm3 (4.00-5.60); RDW 13.2 % (11.9-15.9); WHITE BLOOD COUNT 8.6 K/mm3 (4.0-10.0)
[2018-10-27 07:44] LABS: CALCIUM 9.2 mg/dL (8.5-10.1); MAGNESIUM 2.1 mg/dL (1.8-2.4); PHOSPHOROUS 3.2 mg/dL (2.5-4.9); POTASSIUM 3.4 mmol/L (3.5-5.1)
[2018-10-27] MEDS: LACTATED RINGERS SOLUTION 1,000 ML IV SCH ×2 (08:20→14:00)
[2018-10-27] MEDS ORDERED: POTASSIUM CHLORIDE 20 MEQ PREMIX IVPB 100 ML IVPB ONE (08:32)
[2018-10-27] MEDS: SERTRALINE HCL 50 MG TABLET (FP) PO SCH (10:06)
[2018-10-27] MEDS: predniSONE 20 MG TABLET (UD) PO SCH (10:06)
[2018-10-27 10:07] LABS: CREATININE 1.2 mg/dL (0.55-1.3)
--- NOTE | 2018-10-27 13:08 | PN ---
Progress Note (short form) - Note Progress Note: Colonoscopy performed today revealing normal appearing terminal/distal ileum. Patchy erythema seen near splenic flexure extending to rectosigmoid. Rectum appeared healthy. Biopsies taken. See scanned report for full details. Recommendations: -Follow up pathology results -Resume clear liquid diet and advance as tolerated -Reduce to prednisone 40mg daily - taper to determined pending reassessment in patients symptoms -Follow up fecal calprotectin levels -GI team to follow
--- NOTE | 2018-10-27 13:30 | PN ---
Physical Exam: SUBJECTIVE: Patient seen and examined. Pt. states he was unable to sleep at night because his right forearm IV became infiltrated and the attempts to place and IV on his left arm were not successful. Pt. NPO after midnight for colonoscopy. OBJECTIVE: Vital Signs Period Temp Pulse Resp BP Sys/Werner Pulse Ox Last 24 Hr 97.7 F-98.7 F 61-80 14-20 108-131/66-83 98-100 GENERAL: The patient is awake, alert, and fully oriented, in no acute distress. HEAD: Normal with no signs of trauma. EYES: sclera anicteric, conjunctiva clear. No ptosis. ENT: Ears normal, nares patent, oropharynx clear without exudates, moist mucous membranes. NECK: Trachea midline, full range of motion, supple. LUNGS: Breath sounds equal, clear to auscultation bilaterally, no wheezes, no crackles, no accessory muscle use. HEART: Regular rate and rhythm, S1, S2 without murmur, rub or gallop. ABDOMEN: Soft, RLQ and LLQ mild tenderness, nondistended, normoactive bowel sounds EXTREMITIES: 2+ radial pulses, warm, well-perfused, no calf tenderness, no edema. NEUROLOGICAL: Normal speech, gait not observed. PSYCH: Normal mood, normal affect. SKIN: Warm, dry, normal turgor, no rashes or lesions noted Laboratory Results - last 24 hr 10/27/18 10/27/18 06:05 06:05 WBC 8.6 RBC 4.25 Hgb 12.9 Hct 37.9 MCV 89.2 MCH 30.2 MCHC 33.9 RDW 13.2 Plt Count 272 MPV 8.4 Absolute Neuts (auto) 5.3 Neutrophils % 61.4 Lymphocytes % 30.7 Monocytes % 7.5 Eosinophils % 0.2 Basophils % 0.2 Nucleated RBC % 0 Sodium 141 Potassium 3.4 L Chloride 105 Carbon Dioxide 29 Anion Gap 7 L BUN 7 Creatinine 1.2 Est GFR (CKD-EPI)AfAm 89.00 Est GFR (CKD-EPI)NonAf 76.79 Random Glucose 100 Calcium 9.2 Phosphorus 3.2 Magnesium 2.1 Active Medications Home Medications Medication Instructions Recorded Finasteride [Propecia] 1 mg PO DAILY 12/10/14 Sertraline HCl [Zoloft -] 50 mg PO DAILY 12/10/14 Current Medications Acetaminophen (Tylenol -) 650 mg PO Q4H PRN PRN Reason: FEVER Last Admin: 10/26/18 21:38 Dose: 650 mg Heparin Sodium (Porcine) (Heparin -) 5,000 unit SQ TID [facility] Last Admin: 10/26/18 21:39 Dose: Not Given Lactated Ringer's (Lactated Ringers Solution) 1,000 mls @ 100 mls/hr IV ASDIR [facility] Last Admin: 10/27/18 08:20 Dose: Not Given Levofloxacin (Levaquin 750 Mg Premixed Ivpb -) 750 mg in 150 mls @ 100 mls/hr IVPB DAILY [facility]; Protocol Last Admin: 10/27/18 10:07 Dose: 100 mls/hr Potassium Chloride (Potassium Chloride 10 Meq Premix Ivpb-) 10 meq in 100 mls @ 100 mls/hr IVPB Q1H [facility] Stop: 10/27/18 14:29 Metronidazole (Flagyl -) 500 mg PO TID [facility] Last Admin: 10/27/18 06:22 Dose: 500 mg Morphine Sulfate (Morphine Sulfate) 2 mg IVPUSH Q4H PRN PRN Reason: PAIN LEVEL 6-10 Non-Formulary Medication (Finasteride [Propecia]) 1 mg PO DAILY [facility] Prednisone (Deltasone -) 60 mg PO DAILY [facility] Last Admin: 10/27/18 10:06 Dose: 60 mg Sertraline HCl (Zoloft -) 50 mg PO DAILY [facility] Last Admin: 10/27/18 10:06 Dose: 50 mg ASSESSMENT/PLAN: Patient presents with what is likely a flare of Crohn's disease with n/v/d and Pancolitis seen on the CT. #Crohn's Flare CT Scan: shows Capellan-colitis, 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 Sebastian) appreciated Pt. states that he tried Mesalamine for a few weeks after initial diagnosis but no longer takes it. 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 Duncan but he has not followed up in a "few years." f/u fecal calprotectin ESR: 23; CRP: 13.9 Xray of sacro-iliac joints negative for acute pathology c/w Levaquin and Flagyl (10/25/18) Colonoscopy showed no lesions in terminal ileum patchy erythema near splenic flexure to rectum/sigmoid Morphine 2q4H PRN for pain 6-10 Tylenol 650mg Q4H for pain 1-5 or fever Prednisone decreased to 40mg PO Daily #Depression c/w Zoloft #FEN LR @ 100ml/hr monitor electrolytes, repleted magnesium Clear Liquids, NPO after midnight #DVT Ppx. SCDs Consider restarting heparin tomorrow if no more blood in diarrhea Full Code Visit type - Emergency Visit Emergency Visit: Yes ED Registration Date: 10/25/18 Care time: The patient presented to the Emergency Department on the above date and was hospitalized for further evaluation of their emergent condition. - New Patient This patient is new to me today: No - Critical Care Critical Care patient: No - Discharge Referral Referred to [facility] Med P.C.: Yes Physician Referral: Gage Sebastian DO (GI)
[2018-10-27] MEDS: KCL 10 MEQ IVPB 10 MEQ/100 ML INFUS.BAG IVPB SCH ×2 (13:48→13:49)
[2018-10-27] MEDS ORDERED: POTASSIUM CHLORIDE TABS 20 MEQ TABLET.ER (FP) PO ONE (14:00)
--- NOTE | 2018-10-27 15:29 | PN ---
Teaching Attending Note Name of Resident: Anam Rosa ATTENDING PHYSICIAN STATEMENT I saw and evaluated the patient. I reviewed the resident's note and discussed the case with the resident. I agree with the resident's findings and plan as documented. SUBJECTIVE: Liquid Stool with Bowel prep - clear - no hematochezia. Abdominal discomfort improved. No fever/chills. No further nausea/vomiting. OBJECTIVE: Afebrile, Hemodynamically Stable. Last Vital Signs Temp Pulse Resp BP Pulse Ox 97.8 F 70 20 117/76 98 10/27/18 13:35 10/27/18 13:35 10/27/18 13:35 10/27/18 13:35 10/27/18 13:35 Heart - S1, S2, RRR Lungs - clear to auscultation Abdomen - Soft, mild bilateral LQ tenderness on deep palpation. Bowel Sounds normal. Extremities - no edema, no calf tenderness. Laboratory Results - last 24 hr 10/27/18 10/27/18 06:05 06:05 WBC 8.6 RBC 4.25 Hgb 12.9 Hct 37.9 MCV 89.2 MCH 30.2 MCHC 33.9 RDW 13.2 Plt Count 272 MPV 8.4 Absolute Neuts (auto) 5.3 Neutrophils % 61.4 Lymphocytes % 30.7 Monocytes % 7.5 Eosinophils % 0.2 Basophils % 0.2 Nucleated RBC % 0 Sodium 141 Potassium 3.4 L Chloride 105 Carbon Dioxide 29 Anion Gap 7 L BUN 7 Creatinine 1.2 Est GFR (CKD-EPI)AfAm 89.00 Est GFR (CKD-EPI)NonAf 76.79 Random Glucose 100 Calcium 9.2 Phosphorus 3.2 Magnesium 2.1 Current Medications Generic Name Dose Route Start Last Admin Trade Name Freq PRN Reason Stop Dose Admin Acetaminophen 650 mg 10/25/18 13:28 10/26/18 21:38 Tylenol - PO 650 mg Q4H PRN Administration FEVER Heparin Sodium (Porcine) 5,000 unit 10/26/18 22:00 10/26/18 21:39 Heparin - SQ Not Given TID [facility] Lactated Ringer's 1,000 mls @ 100 mls/hr 10/25/18 04:45 10/27/18 14:00 Lactated Ringers Solution IV 100 mls/hr ASDIR [facility] Administration Levofloxacin 750 mg in 150 mls @ 100 mls/hr 10/26/18 10:00 10/27/18 10:07 Levaquin 750 Mg Premixed Ivpb - IVPB 100 mls/hr DAILY [facility] Administration Protocol Metronidazole 500 mg 10/25/18 22:00 10/27/18 13:59 Flagyl - PO 500 mg TID [facility] Administration Morphine Sulfate 2 mg 10/25/18 17:05 Morphine Sulfate IVPUSH Q4H PRN PAIN LEVEL 6-10 Non-Formulary Medication 1 mg 10/26/18 10:00 Finasteride [Propecia] PO DAILY [facility] Prednisone 60 mg 10/26/18 10:00 10/27/18 10:06 Deltasone - PO 60 mg DAILY [facility] Administration Sertraline HCl 50 mg 10/26/18 10:00 10/27/18 10:06 Zoloft - PO 50 mg DAILY [facility] Administration ASSESSMENT AND PLAN: 38 year old male with history of Crohn's Disease, Dx 2015, does not follow with out-patient GI, presents with bloody diarrhea, nausea and NBNB vomiting. No fever/chills. CT A/P - Pancolitis. 1. Acute Flare IBD/Crohn's Ongoing diarrhea, non-bloody Afebrile, Hemodynamiclly Stable. Leukocytosis resolved Stool Cdiff negative and Stool Gram stain neg. Stool Cx negative so far. Continue Prednisone (dose decreased to 40mg daily), Levofloxacin, Flagyl For Colonoscopy today - further recommendations as per GI. 2. KENISHA secondary to dehydration due to diarrhea/vomiting - resolved with IV hydration 3. Hypomagnesemia/Hypokalemia - repleted. 4. Depression - resumed on Zoloft. DVT Px - Heparin SQ
[2018-10-27] MEDS: ACETAMINOPHEN 325 MG TABLET (FP) PO PRN (21:57)
[2018-10-27] MEDS: HEPARIN NA (PORCINE) 5,000 UNITS/ML 1ML VIAL SQ SCH (21:58)
[2018-10-28] MEDS: LACTATED RINGERS SOLUTION 1,000 ML IV SCH ×2 (06:02→12:39)
[2018-10-28] MEDS: metroNIDAZOLE 250 MG TABLET PO SCH (06:04)
[2018-10-28] MEDS: HEPARIN NA (PORCINE) 5,000 UNITS/ML 1ML VIAL SQ SCH ×3 (06:04→23:00)
[2018-10-28 07:11] LABS: BASO % 0.2 % (0-2.0); EOS % 0.1 % (0-4.5); HEMATOCRIT 38.3 % (35.4-49); HEMOGLOBIN 13.1 GM/dL (11.7-16.9); LYMPH % 26.6 % (8-40); MCH 30.4 pg (25.7-33.7); MCHC 34.2 g/dl (32.0-35.9); MEAN PLT VOLUME 8.6 fl (7.5-11.1); MONO % 5.7 % (3.8-10.2); NEUT % 67.4 % (42.8-82.8); PLATELET COUNT 290 K/MM3 (134-434); RDW 13.2 % (11.9-15.9); WHITE BLOOD COUNT 9.4 K/mm3 (4.0-10.0)
[2018-10-28 07:46] LABS: CALCIUM 8.5 mg/dL (8.5-10.1); MAGNESIUM 1.9 mg/dL (1.8-2.4); PHOSPHOROUS 3.2 mg/dL (2.5-4.9)
[2018-10-28] MEDS: SERTRALINE HCL 50 MG TABLET (FP) PO SCH (09:52)
[2018-10-28] MEDS ORDERED: predniSONE 20 MG TABLET (UD) PO SCH (10:00)
[2018-10-28] MEDS ORDERED: INSULIN (NOVOLOG) ASPART 100 UNITS/ML 10ML VIAL SQ ONE (12:15)
[2018-10-28 12:54] VITALS: BMI 25.2
--- NOTE | 2018-10-28 14:50 | PN ---
Teaching Attending Note Name of Resident: Anam Rosa ATTENDING PHYSICIAN STATEMENT I saw and evaluated the patient. I reviewed the resident's note and discussed the case with the resident. I agree with the resident's findings and plan as documented. SUBJECTIVE: Reports some ongoing loose stool - no further blood per rectum. Abdominal discomfort much improved. No fever/chills. No further nausea/ vomiting. OBJECTIVE: Afebrile, Hemodynamically Stable. Last Vital Signs Temp Pulse Resp BP Pulse Ox 99.3 F 102 H 18 146/94 98 10/28/18 14:06 10/28/18 14:06 10/28/18 14:06 10/28/18 14:06 10/28/18 09:00 Heart - S1, S2, RRR Lungs - clear to auscultation Abdomen - Soft, mild bilateral LQ tenderness on deep palpation. Bowel Sounds normal. Extremities - no edema, no calf tenderness. Laboratory Results - last 24 hr 10/25/18 10/28/18 10/28/18 22:20 06:00 06:00 WBC 9.4 RBC 4.30 Hgb 13.1 Hct 38.3 MCV 89.0 MCH 30.4 MCHC 34.2 RDW 13.2 Plt Count 290 MPV 8.6 Absolute Neuts (auto) 6.3 Neutrophils % 67.4 Lymphocytes % 26.6 Monocytes % 5.7 Eosinophils % 0.1 Basophils % 0.2 Nucleated RBC % 0 Sodium 139 Potassium 4.0 Chloride 106 Carbon Dioxide 25 Anion Gap 8 BUN 10 Creatinine 1.0 Est GFR (CKD-EPI)AfAm 110.94 Est GFR (CKD-EPI)NonAf 95.72 Random Glucose 84 Calcium 8.5 Phosphorus 3.2 Magnesium 1.9 Stool Calprotectin 70 Current Medications Generic Name Dose Route Start Last Admin Trade Name Freq PRN Reason Stop Dose Admin Acetaminophen 650 mg 10/25/18 13:28 10/27/18 21:57 Tylenol - PO 650 mg Q4H PRN Administration FEVER Heparin Sodium (Porcine) 5,000 unit 10/26/18 22:00 10/28/18 06:04 Heparin - SQ Not Given TID [facility] Mesalamine 800 mg 10/28/18 14:00 Asacol Hd - PO TID [facility] Morphine Sulfate 2 mg 10/25/18 17:05 Morphine Sulfate IVPUSH Q4H PRN PAIN LEVEL 6-10 Non-Formulary Medication 1 mg 05/07/19 10:00 Finasteride [Propecia] PO DAILY [facility] Prednisone 40 mg 10/28/18 10:00 10/28/18 09:51 Deltasone - PO 40 mg DAILY [facility] Administration Sertraline HCl 50 mg 10/26/18 10:00 10/28/18 09:52 Zoloft - PO 50 mg DAILY [facility] Administration ASSESSMENT AND PLAN: 38 year old male with history of Crohn's Disease, Dx 2015, does not follow with out-patient GI, presents with bloody diarrhea, nausea and NBNB vomiting. No fever/chills. CT A/P - Pancolitis. 1. Acute Flare IBD/Crohn's Ongoing diarrhea, non-bloody Afebrile, Hemodynamiclly Stable. Leukocytosis resolved Stool Cdiff negative and Stool Cx negative. Continue Prednisone (dose decreased to 40mg daily), Levofloxacin, Flagyl POD 1 s/p Colonoscopy - patchy mild erythema from splenic flexure to sigmoid colon. Further recommendations as per GI. 2. KENISHA secondary to dehydration due to diarrhea/vomiting - resolved with IV hydration 3. Hypomagnesemia/Hypokalemia - repleted. 4. Depression - resumed on Zoloft. DVT Px - Heparin SQ
--- NOTE | 2018-10-28 15:00 | PN.GI ---
GI Progress Note Subjective: Diarrhea improved in terms of frequency and consistency. Colonoscopy revealed mild erythema from the splenic flexure down to rectum. No rectal bleeding. No abdominal pain. Stool calprotectin 70 (borderline elevated). Stool studies have been unrevealing to date. - Objective Vital Signs: Vital Signs Temperature 99.3 F 10/28/18 14:06 Pulse Rate 102 H 10/28/18 14:06 Respiratory Rate 18 10/28/18 14:06 Blood Pressure 146/94 10/28/18 14:06 O2 Sat by Pulse Oximetry (%) 98 10/28/18 09:00 Constitutional: Calm Eyes: No: Sclera Icterus Cardiovascular: Yes: Regular Rate and Rhythm Respiratory: Yes: CTA Bilaterally Gastrointestinal Inspection: No: Distention, Scars ...Auscultate: Yes: Normoactive Bowel Sounds ...Palpate: Yes: Soft. No: Tenderness Edema: No (No LE edema) Neurological: Yes: Alert Labs: CBC, BMP 10/28/18 06:00 10/28/18 06:00 Problem List - Problems (1) Diarrhea Assessment/Plan: Improving with mild left sided colitis noted on colonoscopy ? IBD flare vs. self limited process. Started on prednisone 40mg daily. Can decrease to 30mg tomorrow and will slowly taper from that point Added Asacol HD 800mg PO TID If continued clinical improvement, D/C in AM Code(s): R19.7 - DIARRHEA, UNSPECIFIED
[2018-10-28] MEDS: MESALAMINE 800 MG TABLET.DR PO SCH ×2 (15:07→22:52)
--- NOTE | 2018-10-28 16:02 | PN ---
Physical Exam: SUBJECTIVE: Patient seen and examined OBJECTIVE: Vital Signs Period Temp Pulse Resp BP Sys/Werner Pulse Ox Last 24 Hr 97.7 F-99.3 F 71-102 16-77 119-146/74-94 98-98 GENERAL: The patient is awake, alert, and fully oriented, in no acute distress. HEAD: Normal with no signs of trauma. EYES: sclera anicteric, conjunctiva clear. No ptosis. ENT: Ears normal, nares patent, oropharynx clear without exudates, moist mucous membranes. NECK: Trachea midline, full range of motion, supple. LUNGS: Breath sounds equal, clear to auscultation bilaterally, no wheezes, no crackles, no accessory muscle use. HEART: Regular rate and rhythm, S1, S2 without murmur, rub or gallop. ABDOMEN: Soft, RLQ and LLQ mild tenderness, nondistended, normoactive bowel sounds EXTREMITIES: 2+ radial pulses, warm, well-perfused, no calf tenderness, no edema. NEUROLOGICAL: Normal speech, gait not observed. PSYCH: Normal mood, normal affect. SKIN: Warm, dry, normal turgor, no rashes or lesions noted Laboratory Results - last 24 hr 10/25/18 10/28/18 10/28/18 22:20 06:00 06:00 WBC 9.4 RBC 4.30 Hgb 13.1 Hct 38.3 MCV 89.0 MCH 30.4 MCHC 34.2 RDW 13.2 Plt Count 290 MPV 8.6 Absolute Neuts (auto) 6.3 Neutrophils % 67.4 Lymphocytes % 26.6 Monocytes % 5.7 Eosinophils % 0.1 Basophils % 0.2 Nucleated RBC % 0 Sodium 139 Potassium 4.0 Chloride 106 Carbon Dioxide 25 Anion Gap 8 BUN 10 Creatinine 1.0 Est GFR (CKD-EPI)AfAm 110.94 Est GFR (CKD-EPI)NonAf 95.72 Random Glucose 84 Calcium 8.5 Phosphorus 3.2 Magnesium 1.9 Stool Calprotectin 70 Active Medications Home Medications Medication Instructions Recorded Finasteride [Propecia] 1 mg PO DAILY 12/10/14 Sertraline HCl [Zoloft -] 50 mg PO DAILY 12/10/14 Current Medications Acetaminophen (Tylenol -) 650 mg PO Q4H PRN PRN Reason: FEVER Last Admin: 10/27/18 21:57 Dose: 650 mg Heparin Sodium (Porcine) (Heparin -) 5,000 unit SQ TID [facility] Last Admin: 10/28/18 15:07 Dose: Not Given Mesalamine (Asacol Hd -) 800 mg PO TID [facility] Last Admin: 10/28/18 15:07 Dose: Not Given Morphine Sulfate (Morphine Sulfate) 2 mg IVPUSH Q4H PRN PRN Reason: PAIN LEVEL 6-10 Non-Formulary Medication (Finasteride [Propecia]) 1 mg PO DAILY [facility] Prednisone (Deltasone -) 40 mg PO DAILY [facility] Last Admin: 10/28/18 09:51 Dose: 40 mg Sertraline HCl (Zoloft -) 50 mg PO DAILY [facility] Last Admin: 10/28/18 09:52 Dose: 50 mg ASSESSMENT/PLAN: Patient presents with what is likely a flare of Crohn's disease with n/v/d and Pancolitis seen on the CT. #Crohn's Flare CT Scan: shows Capellan-colitis, 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 Aragon) appreciated Pt. states that he tried Mesalamine (Pentasa) for a few weeks after initial diagnosis but no longer takes it. 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 Duncan but he has not followed up in a "few years." Pentasa has prolonged released throughout small intestines, only 50% reach the colon. this may be why Pt. does not have symptom relief as he has primary pathology in the colon now despite being diagnosed in the terminal ileum initially. Asacol is cleaved in the terminal ileum and bolused in the right colon. Calprotectin: 70 indicative of borderline disease will need f/u in 4-6 weeks ESR: 23; CRP: 13.9 Xray of sacro-iliac joints negative for acute pathology c/w Levaquin and Flagyl (10/25/18) Colonoscopy showed no lesions in terminal ileum patchy erythema near splenic flexure to rectum/sigmoid Morphine 2q4H PRN for pain 6-10 Tylenol 650mg Q4H for pain 1-5 or fever Prednisone decreased to 30mg tomorrow and then taper. Start Asacol 300mg TID f/u IBD studies #Depression c/w Zoloft #FEN LR @ 100ml/hr monitor electrolytes, repleted magnesium Clear Liquids, NPO after midnight #DVT Ppx. SCDs #Dispo D/C planning Full Code
[2018-10-28] MEDS ORDERED: ZOLPIDEM TARTRATE 5 MG TABLET PO ONE (20:09)
[2018-10-28] MEDS ORDERED: PT OWN MED DRAWER 7, Y5N ONE (20:36)
[2018-10-29] MEDS: MESALAMINE 800 MG TABLET.DR PO SCH (05:58)
[2018-10-29] MEDS: HEPARIN NA (PORCINE) 5,000 UNITS/ML 1ML VIAL SQ SCH (06:00)
[2018-10-29] MEDS: SERTRALINE HCL 50 MG TABLET (FP) PO SCH (09:39)
[2018-10-29] MEDS ORDERED: predniSONE 10 MG TABLET (UD) PO SCH (10:00)
[2018-10-29 10:34] VITALS: BP 127/89; PULSE 70; TEMP 98.1
--- NOTE | 2018-10-29 11:31 | DS ---
Physical Exam: SUBJECTIVE: Patient seen and examined OBJECTIVE: Vital Signs Period Temp Pulse Resp BP Sys/Werner Pulse Ox Last 24 Hr 97.9 F-99.3 F 68-102 18-20 121-146/73-94 95-98 PHYSICAL EXAM GENERAL: The patient is awake, alert, and fully oriented, in no acute distress. HEAD: Normal with no signs of trauma. EYES: PERRL, extraocular movements intact, sclera anicteric, conjunctiva clear. ENT: Ears normal, nares patent, oropharynx clear without exudates, moist mucous membranes. NECK: Trachea midline, full range of motion, supple. LUNGS: Breath sounds equal, clear to auscultation bilaterally, no wheezes, no crackles, no accessory muscle use. HEART: Regular rate and rhythm, S1, S2 without murmur, rub or gallop. ABDOMEN: Soft, nontender, nondistended, normoactive bowel sounds, no guarding, no rebound, no hepatosplenomegaly, no masses. EXTREMITIES: 2+ pulses, warm, well-perfused, no edema. NEUROLOGICAL: Cranial nerves II through XII grossly intact. Normal speech, gait not observed. PSYCH: Normal mood, normal affect. SKIN: Warm, dry, normal turgor, no rashes or lesions noted. LABS HOSPITAL COURSE: Date of Admission:10/25/18 Date of Discharge: 10/29/18 Discharge Summary Reason For Visit: FEVER/COLITIS/DIAFFHEA/UNABLE TO EAT Current Active Problems Colitis (Acute) Dehydration (Acute) Fever (Acute) Unable to eat (Acute) Condition: Improved - Instructions Diet, Activity, Other Instructions: You came in for fever, abdominal pain and bloody diarrhea because of a flare up of your Crohn's disease. We treated you with IV fluids and antibiotics. We started you on new medications. Asacol 800mg THREE times a day(every 8 hours) Prednisone Taper 30mg ONCE a day for 5 days (10/30/18 - 11/03/18) 20mg ONCE a day for 5 days (11/04/18- 11/08/18) 10mg ONCE a day for 5 days (11/09/18- 11/13/18) 5mg ONCE a day for 5 days (11/14/18- 11/18/18) We are sending 10mg tablets to the pharmacy, The first 5 days you will need to take 3 pills to get to 30mg, the second 5 days you will 2 pills to get to 20 mg , the third 5 days you will need 1 tablet to get to 10mg, and for the last 5 days, PLEASE break the tablets in half. You should have 1/2 tablet remaining at the end of the course, you may discard that 1/2 tablet. Please follow up with your PCP within 1 week. If yo do not have one we have provided Dr. De Oliveira, for you. Please follow up with your Helminthology Teacher, Dr. Aragon within 1 week. Please discuss re-evaluation of your calprotectin level which was borderline range at 70. Please return to the ED if you are having worsening abdominal pain, diarrhea, blood diarrhea, worsening joint pain, changes in vision, fevers, chills or any concerning symptoms. Referrals: Ed De Oliveira MD [Staff Physician] - 1 Week Bertram Aragon DO [Staff Physician] - 1 Week Disposition: HOME - Home Medications Comprehensive Discharge Medication List: Ambulatory Orders Finasteride [Propecia] 1 mg PO DAILY 12/10/14 Sertraline HCl [Zoloft -] 50 mg PO DAILY 12/10/14 Mesalamine [Asacol HD -] 800 mg PO TID #90 tablet. 10/29/18 Prednisone 10 mg PO ASDIR #23 tablet 10/29/18 - Discharge Referral Referred to [facility] Med P.C.: Yes Physician Referral: Gage Aragon DO (GI)
--- NOTE | 2018-10-29 14:17 | PN ---
Teaching Attending Note Name of Resident: Anam Rosa ATTENDING PHYSICIAN STATEMENT I saw and evaluated the patient. I reviewed the resident's note and discussed the case with the resident. I agree with the resident's findings and plan as documented. SUBJECTIVE: Reports some ongoing loose stool - no further blood per rectum. Abdominal discomfort much improved. No fever/chills. No further nausea/ vomiting. OBJECTIVE: Afebrile, Hemodynamically Stable. Last Vital Signs Temp Pulse Resp BP Pulse Ox 98.1 F 70 20 127/89 95 10/29/18 10:00 10/29/18 10:00 10/29/18 10:00 10/29/18 10:00 10/29/18 09:00 Heart - S1, S2, RRR Lungs - clear to auscultation Abdomen - Soft, mild bilateral LQ tenderness on deep palpation. Bowel Sounds normal. Extremities - no edema, no calf tenderness. CBCD WBC 9.4 K/mm3 (4.0-10.0) 10/28/18 06:00 RBC 4.30 M/mm3 (4.00-5.60) 10/28/18 06:00 Hgb 13.1 GM/dL (11.7-16.9) 10/28/18 06:00 Hct 38.3 % (35.4-49) 10/28/18 06:00 MCV 89.0 fl (80-96) 10/28/18 06:00 MCHC 34.2 g/dl (32.0-35.9) 10/28/18 06:00 RDW 13.2 % (11.9-15.9) 10/28/18 06:00 Plt Count 290 K/MM3 (134-434) 10/28/18 06:00 MPV 8.6 fl (7.5-11.1) 10/28/18 06:00 CMP Sodium 139 mmol/L (136-145) 10/28/18 06:00 Potassium 4.0 mmol/L (3.5-5.1) 10/28/18 06:00 Chloride 106 mmol/L (98-107) 10/28/18 06:00 Carbon Dioxide 25 mmol/L (21-32) 10/28/18 06:00 Anion Gap 8 MMOL/L (8-16) 10/28/18 06:00 BUN 10 mg/dL (7-18) 05/09/19 06:00 Creatinine 1.0 mg/dL (0.55-1.3) 10/28/18 06:00 Creat Clearance w eGFR 84.08 (>60) 10/26/18 06:15 Random Glucose 84 mg/dL (74-106) 10/28/18 06:00 Calcium 8.5 mg/dL (8.5-10.1) 10/28/18 06:00 Total Bilirubin 0.6 mg/dL (0.2-1) 10/25/18 05:30 AST 20 U/L (15-37) 10/25/18 05:30 ALT 28 U/L (13-61) 10/25/18 05:30 Alkaline Phosphatase 80 U/L (45-117) 10/25/18 05:30 Total Protein 6.2 g/dl (6.4-8.2) L 10/25/18 05:30 Albumin 3.3 g/dl (3.4-5.0) L 10/25/18 05:30 Discharge Medications Medication Instructions Recorded Finasteride [Propecia] 1 mg PO DAILY 12/10/14 Sertraline HCl [Zoloft -] 50 mg PO DAILY 12/10/14 Mesalamine [Asacol HD -] 800 mg PO TID #90 tablet. 10/29/18 Prednisone 10 mg PO ASDIR #23 tablet 10/29/18 ASSESSMENT AND PLAN: 38 year old male with history of Crohn's Disease, Dx 2014, does not follow with out-patient GI, presents with bloody diarrhea, nausea and NBNB vomiting. No fever/chills. CT A/P - Pancolitis. 1. Acute Flare IBD/Crohn's Abdominal pain and diarrhea resolving. Afebrile, Hemodynamiclly Stable. Leukocytosis resolved Stool Cdiff negative and Stool Cx negative. Treated with Prednisone, Levofloxacin, Flagyl during inpatient stay s/p Colonoscopy - patchy mild erythema from splenic flexure to sigmoid colon. Started on Asacol and tapering course of Prednisone. GI follow up as out-patient. 2. KENISHA secondary to dehydration due to diarrhea/vomiting - resolved with IV hydration 3. Hypomagnesemia/Hypokalemia - repleted. 4. Depression - resumed on Zoloft. Acute Crohn's flare much improved - medically stable for discharge on Asacol, tapering course of Prednisone and GI follow up.
== END 2018-10-29 11:54 | disposition home or self-care (01) | DRG 245 ==
LOC: JER 23:11 → UNDOADMIN 10-25 03:07 → JERBED 10-25 03:07 → J7W 10-25 07:13
PROVIDERS: ADMIT Internal Medicine
DX: K50.90 Crohn's disease, unspecified, without complications (principal); N17.9 Acute kidney failure, unspecified; R11.2 Nausea with vomiting, unspecified; D72.829 Elevated white blood cell count, unspecified; F32.9 Major depressive disorder, single episode, unspecified; E83.42 Hypomagnesemia; R19.7 Diarrhea, unspecified; R50.9 Fever, unspecified
CPT/HCPCS: 36415; 71045-TC-FY; 73523-TC-FY; 74177-TC; 80048; 80053; 82272; 83605; 83631; 83690; 83735; 83993; 84100; 85025; 85651; 86140; 86256; 86671; 87040; 87045; 87046; 87070; 87205; 87324; 87449; 87880; 88305-TC; 93005; 93010; 99283-25; J0131; J1644; J7030